=== PATIENT | male | born 1985 | race Caucasian/White ===

== ENCOUNTER 2019-08-20 06:31 | Emergency (ER) | payer SELFPAY ==
[~2019-08-20] VITALS: Ht 180.3 cm; Wt 109.1 kg
[2019-08-20 06:35] VITALS: Ht 180.3 cm; Wt 109.1 kg
[2019-08-20] MEDS ORDERED: KEFLEX500 MG PO (07:09)
[2019-08-20 07:34] VITALS: BP 118/71
== END 2019-08-20 07:40 | disposition home or self-care (01) ==
LOC: D.ER 06:31
DX: J06.9 Acute upper respiratory infection, unspecified (principal)